=== PATIENT | female | born 1970 | race Caucasian/White ===

== ENCOUNTER 2019-08-16 14:20 | Outpatient (CLI) | payer OTHER ==
--- NOTE | 2019-09-05 15:20 | MMO ---
Bilateral MAMMO Bilat Screen [facility]. CLINICAL HISTORY: Patient is 49 years old and is seen for screening. The patient has no family history of breast cancer. The patient has no personal history of cancer. VIEWS: The views performed were: bilateral craniocaudal with tomosynthesis and bilateral mediolateral oblique with tomosynthesis. This study has been interpreted with the assistance of computer-aided detection. MAMMOGRAM FINDINGS: There are scattered fibroglandular densities. There are stable benign appearing calcifications seen in both breasts. There are no suspicious masses, suspicious calcifications, or new areas of architectural distortion. IMPRESSION: THERE IS NO MAMMOGRAPHIC EVIDENCE OF MALIGNANCY. A ROUTINE FOLLOW-UP MAMMOGRAM IN 1 YEAR IS RECOMMENDED. THE RESULTS OF THIS EXAM WERE SENT TO THE PATIENT. ACR BI-RADS Category 2 - Benign finding MAMMOGRAPHY NOTE: 1. A negative mammogram report should not delay a biopsy if a dominant of clinically suspicious mass is present. 2. Approximately 10% to 15% of breast cancers are not detected by mammography. 3. Adenosis and dense breasts may obscure an underlying neoplasm. Reported by: MERY DANIEL MD Electonically Signed: [id number]
== END 2019-08-16 14:21 | disposition home or self-care (01) ==
LOC: BICMAMMO 14:20
PROVIDERS: ATTEND Nurse Practitioner
DX: Z12.31 Encounter for screening mammogram for malignant neoplasm of breast (principal)
CPT/HCPCS: 77063; 77067

== ENCOUNTER 2021-01-12 11:04 | Outpatient (CLI) | payer OTHER | END 2021-01-12 11:05 | disposition home or self-care (01) | LOC: BICMAMMO 11:04 | PROVIDERS: ATTEND Nurse Practitioner | DX: Z12.31 Encounter for screening mammogram for malignant neoplasm of breast (principal) | CPT/HCPCS: 77063; 77067 ==

== ENCOUNTER 2022-01-20 12:15 | Inpatient (IN) | payer BC, OTHER ==
[2022-01-20 12:49] LABS: #Basophils 0.1 thou/uL (0.0-0.2); #Eosinphils 0.2 thou/uL (0.0-0.7); #Lymphocytes 2.2 thou/uL (1.20-3.40); #Monocytes 0.5 thou/uL (0.11-0.59); #Neutrophils 5.7 thou/uL (1.40-6.50); %Basophils 0.9 % (0.0-1.0); %Eosinophils 2.1 % (0.0-10.0); %Lymphocytes 25.2 % (21.0-51.0); %Neutrophils 65.7 % (42.0-75.0); Hemoglobin 15.2 g/dL (12.0-16.0); Mean Corpuscular Hemoglobin 28.9 pg (27.0-31.0); Mean Corpuscular Volume 87.4 fl (78.0-98.0); Mean Platelet Volume 9.9 fL (7.4-10.4); Platelet Count 217 10x3/uL (130-400); RBC Distribution Width 12.2 % (11.5-14.5); Red Blood Cell (RBC) Count 5.25 mill/uL (4.20-5.40); White Blood Cell (WBC) Count 8.6 10x3/uL (4.8-10.8)
[2022-01-20] MEDS ORDERED: Diltiazem 125 MG/25 ML ONE (12:51)
[2022-01-20 13:05] LABS: PTT 31.4 sec (22.9-36.1); Prothrombin Time 13.9 sec (12.0-14.7)
[2022-01-20 13:12] LABS: ALT (SGPT) 50 U/L (8-55); AST (SGOT) 30 U/L (5-34); Albumin 4.5 g/dL (3.5-5.0); Alkaline Phosphatase 109 U/L (40-110); Anion Gap 17 mmol/L (10-20); BUN (Urea Nitrogen) 14 mg/dL (9.8-20.1); Bilirubin, Total 1.8 mg/dL (0.2-1.2); Calc. Creatinine Clearance 0 mL/min (70-130); Carbon Dioxide 24 mmol/L (22-29); Chloride 101 mmol/L (98-107); Estimated GFR 83; Globulin 2.7 g/dL (2.4-3.5); Glucose 205 mg/dL (70-105); Lipase 11 U/L (8-78); Potassium 4.7 mmol/L (3.5-5.1); Protein, Total 7.2 g/dL (6.0-8.3); Sodium 137 mmol/L (136-145)
[2022-01-20] MEDS ORDERED: Ondansetron PF 4 MG/2 ML Vial IVP PRN (14:52)
[2022-01-20] MEDS ORDERED: Acetaminophen 325 MG TAB PO PRN (14:52)
[2022-01-20] MEDS ORDERED: Ondansetron ODT 4 MG TAB PO PRN (14:52)
[2022-01-20] MEDS ORDERED: Dextrose 5% in Water 1,000 ML IV PRN (15:05)
[2022-01-20] MEDS ORDERED: Dextrose 50% Abboject 50 ML SYRINGE SLOW IVP PRN (15:05)
[2022-01-20] MEDS ORDERED: Enoxaparin Sodium 100 MG/ML SYRINGE SC SCH (15:15)
[2022-01-20] MEDS ORDERED: Metoprolol Tartrate 25 MG TAB PO SCH (15:15)
[2022-01-20 17:13] VITALS: BMI 34.2
[2022-01-20 17:34] LABS: Troponin I Less than 0.010 ng/mL (< 0.028)
[2022-01-20] MEDS: metFORMIN 500 MG TAB PO SCH (17:37)
[2022-01-20] MEDS ORDERED: Diltiazem 125 MG in Sodium Chloride 0.9% 100 ML IVPB SCH (18:45)
[2022-01-20] MEDS: Atorvastatin Calcium 20 MG TAB PO SCH (20:09)
[2022-01-20] MEDS: Metoprolol Tartrate 25 MG TAB PO SCH (20:10)
[2022-01-20 20:42] LABS: Troponin I Less than 0.010 ng/mL (< 0.028)
[2022-01-21 04:47] LABS: ALT (SGPT) 39 U/L (8-55); AST (SGOT) 20 U/L (5-34); Alkaline Phosphatase 84 U/L (40-110); Anion Gap 11 mmol/L (10-20); BUN (Urea Nitrogen) 15 mg/dL (9.8-20.1); Bilirubin, Total 1.9 mg/dL (0.2-1.2); Calc. Creatinine Clearance 112 mL/min (70-130); Carbon Dioxide 27 mmol/L (22-29); Chloride 102 mmol/L (98-107); Estimated GFR 79; Globulin 2.3 g/dL (2.4-3.5); Glucose 197 mg/dL (70-105); Magnesium 1.7 mg/dL (1.6-2.6); Potassium 4.3 mmol/L (3.5-5.1); Protein, Total 6.3 g/dL (6.0-8.3); Sodium 136 mmol/L (136-145)
[2022-01-21 05:09] LABS: Band 4 % (5-11); Eosinophils 2 % (0-10); Hemoglobin 14.4 g/dL (12.0-16.0); Lymphocytes 39 % (21-51); MDiff Complete? YES; Mean Corpuscular HGB CONC 33.6 g/dL (32.0-36.0); Mean Platelet Volume 9.6 fL (7.4-10.4); Monocytes 7 % (0-10); Neutrophil 41 % (42-75); Platelet Count 207 10x3/uL (130-400); Platelet Morphology Comment Appears Adequate; RBC Distribution Width 12.2 % (11.5-14.5); RBC Morphology Normal; Reactive Lymphocytes 7 % (0-10); White Blood Cell (WBC) Count 6.8 10x3/uL (4.8-10.8)
[2022-01-21] MEDS ORDERED: Lisinopril 20 MG TAB PO SCH (09:00)
[2022-01-21] MEDS ORDERED: Aspirin 81 mg Enteric Coated Tablet PO SCH (09:00)
[2022-01-21] MEDS: metFORMIN 500 MG TAB PO SCH (09:40)
[2022-01-21] MEDS: Metoprolol Tartrate 25 MG TAB PO SCH (09:41)
[2022-01-21] MEDS: Enoxaparin Sodium 100 MG/ML SYRINGE SC SCH ×2 (12:11→20:52)
[2022-01-21] MEDS: HumaLOG 300 UNITS/3 ML VIAL SC PRN (12:11)
[2022-01-21] MEDS ORDERED: Ketamine 50 MG/ML (10ML VIAL) ONE (14:54)
[2022-01-21] MEDS ORDERED: PROPOFOL 200 MG/20 ML VIAL ONE (15:02)
[2022-01-21] MEDS: Dronedarone HCl 400 MG TAB PO SCH (17:39)
[2022-01-21] MEDS: Famotidine 20 MG TAB PO SCH (20:52)
[2022-01-21] MEDS: Atorvastatin Calcium 20 MG TAB PO SCH (20:52)
[2022-01-22 04:44] LABS: #Basophils 0.1 thou/uL (0.0-0.2); #Eosinphils 0.2 thou/uL (0.0-0.7); #Lymphocytes 2.6 thou/uL (1.20-3.40); #Monocytes 0.4 thou/uL (0.11-0.59); #Neutrophils 2.2 thou/uL (1.40-6.50); %Basophils 1.5 % (0.0-1.0); %Eosinophils 4.2 % (0.0-10.0); %Lymphocytes 46.4 % (21.0-51.0); %Monocytes 7.9 % (0.0-10.0); Hemoglobin 14.8 g/dL (12.0-16.0); Mean Corpuscular Hemoglobin 30.4 pg (27.0-31.0); Mean Corpuscular Volume 89.4 fl (78.0-98.0); Mean Platelet Volume 10.1 fL (7.4-10.4); Platelet Count 184 10x3/uL (130-400); RBC Distribution Width 12.1 % (11.5-14.5); Red Blood Cell (RBC) Count 4.88 mill/uL (4.20-5.40); White Blood Cell (WBC) Count 5.6 10x3/uL (4.8-10.8)
[2022-01-22 05:15] LABS: ALT (SGPT) 43 U/L (8-55); AST (SGOT) 27 U/L (5-34); Alkaline Phosphatase 89 U/L (40-110); Anion Gap 15 mmol/L (10-20); BUN (Urea Nitrogen) 14 mg/dL (9.8-20.1); Bilirubin, Total 2.2 mg/dL (0.2-1.2); Calc. Creatinine Clearance 119 mL/min (70-130); Calcium 9.1 mg/dL (7.8-10.44); Carbon Dioxide 25 mmol/L (22-29); Chloride 101 mmol/L (98-107); Estimated GFR 84; Globulin 2.6 g/dL (2.4-3.5); Glucose 156 mg/dL (70-105); Magnesium 1.8 mg/dL (1.6-2.6); Protein, Total 6.6 g/dL (6.0-8.3); Sodium 137 mmol/L (136-145)
[2022-01-22 07:47] VITALS: TEMP 96.6
[2022-01-22] MEDS: Dronedarone HCl 400 MG TAB PO SCH (08:44)
[2022-01-22] MEDS: Famotidine 20 MG TAB PO SCH (08:44)
[2022-01-22] MEDS: Enoxaparin Sodium 100 MG/ML SYRINGE SC SCH (08:45)
[2022-01-22] MEDS ORDERED: Lisinopril 20 MG TAB PO SCH (09:00)
[2022-01-22] MEDS: HumaLOG 300 UNITS/3 ML VIAL SC PRN (11:48)
[2022-01-22 12:10] VITALS: BP 141/90
[2022-01-22] MEDS ORDERED: Apixaban 5 MG TAB PO SCH (21:00)
[2022-01-22] MEDS ORDERED: Sacubitril 49 MG/Valsartan 51 MG TABLET PO SCH (21:00)
== END 2022-01-22 13:45 | disposition home or self-care (01) | DRG 310 ==
LOC: SUATTDRO 12:15 → ERS 12:15 → 2NO 14:43
PROVIDERS: ADMIT Internal Medicine; ATTEND Internal Medicine
PROC: B246ZZ4 Ultrasonography of Right and Left Heart, Transesophageal (ICD-10-PCS; principal; 2022-01-21)
PROC: 5A2204Z Restoration of Cardiac Rhythm, Single (ICD-10-PCS; 2022-01-21)
DX: I48.0 Paroxysmal atrial fibrillation (principal); I10 Essential (primary) hypertension; E78.00 Pure hypercholesterolemia, unspecified; E78.5 Hyperlipidemia, unspecified; E11.65 Type 2 diabetes mellitus with hyperglycemia; E66.01 Morbid (severe) obesity due to excess calories; I08.3 Combined rheumatic disorders of mitral, aortic and tricuspid valves; Z20.822 Contact with and (suspected) exposure to COVID-19; Z68.34 Body mass index [BMI] 34.0-34.9, adult
CPT/HCPCS: 36415; 36416; 71045; 76705; 80053; 82248; 83690; 83735; 83880; 84100; 84443; 84484; 85025; 85610; 85730; 92960; 93005; 93010; 93306; 93312; 96365; 96366; 96374; J1650; J1815; J2704; J3490; U0003; U0005